=== PATIENT | female | born 1950 | race Caucasian/White ===

== ENCOUNTER 2025-04-23 15:24 | Observation (INO) | payer MEDICARE ==
[2025-04-23 17:08] LABS: APPEARANCE,URINE CLEAR (CLEAR); GLUCOSE,URINE NEGATIVE (NEGATIVE); OCCULT BLOOD,URINE NEGATIVE (NEGATIVE)
[2025-04-23 17:31] LABS: BASOPHILS ABSOLUTE AUTO 0.04 K/uL (0.00-0.10); BASOPHILS PERCENT AUTO 0.7 % (0.1-1.3); EOSINOPHILS ABSOLUTE AUTO 0.08 K/uL (0.00-0.40); EOSINOPHILS PERCENT AUTO 1.4 % (0.0-5.4); IMMATURE GRAN PERCENT AUTO 0.3 % (0.0-0.7); LYMPHOCYTES ABSOLUTE AUTO 2.01 K/uL (0.8-3.3); LYMPHOCYTES PERCENT AUTO 34.1 % (11.4-47.7); MONOCYTES ABSOLUTE AUTO 0.35 K/uL (0.20-0.90); MONOCYTES PERCENT AUTO 5.9 % (3.3-12.6); NEUTROPHILS ABSOLUTE AUTO 3.40 K/uL (1.0-7.6); NEUTROPHILS PERCENT AUTO 57.6 % (40.0-78.1); PLATELET COUNT,PLT 216 K/uL (130-375); RED BLOOD CELL COUNT 3.24 M/uL (3.77-5.24); WHITE BLOOD CELL COUNT,WBC 5.9 K/uL (3.2-11.0)
[2025-04-23 17:33] LABS: IMMATURE GRAN ABSOLUTE AUTO 0.02 K/uL (0.00-0.23)
[2025-04-23 17:52] LABS: A/G RATIO 1.8 (1.2-2.2); ALANINE AMINOTRANSFERASE,ALT 20 U/L (12-78); ASPARTATE AMNIOTRANSFERASE,AST 42 U/L (15-37); BILIRUBIN TOTAL 0.4 mg/dL (0.2-1.0); BLOOD UREA NITROGEN,BUN 28 mg/dL (7-18); CARBON DIOXIDE,CO2 31 mmol/L (21-32); CHLORIDE,CL 96 mmol/L (100-108); CREATININE 0.9 mg/dL (0.6-1.0); EST CRCL DRUG DOSING (CG) 45.36 mL/min; ESTIMATED GFR 67 mL/min (>60); GLUCOSE RANDOM 103 mg/dL (74-106); POTASSIUM,K 3.7 mmol/L (3.6-5.2); PROTEIN TOTAL,TP 7.3 g/dL (6.4-8.2); SODIUM,NA 134 mmol/L (140-148)
[2025-04-23] MEDS ORDERED: Ondansetron 4 MG/2 ML SDV IV PRN (19:14)
[2025-04-23] MEDS ORDERED: Magnesium Hydroxide 400 MG/5 ML Susp 30 ML Cup PO PRN (19:14)
[2025-04-23] MEDS ORDERED: Ondansetron 4 MG Tab.DIS PO PRN (19:14)
[2025-04-23] MEDS ORDERED: Sennosides/Docusate Sodium 50-8.6 MG Tab PO PRN (19:14)
[2025-04-23] MEDS ORDERED: Naloxone 0.4 MG/ML SDV IVPUSH PRN (19:14)
[2025-04-24 05:52] LABS: PLATELET COUNT,PLT 170.0 K/uL (130-375); RED BLOOD CELL COUNT 2.78 M/uL (3.77-5.24); WHITE BLOOD CELL COUNT,WBC 4.2 K/uL (3.2-11.0)
[2025-04-24 06:07] LABS: BLOOD UREA NITROGEN,BUN 22.0 mg/dL (7-18); CARBON DIOXIDE,CO2 32.0 mmol/L (21-32); CHLORIDE,CL 104.0 mmol/L (100-108); CREATININE 0.7 mg/dL (0.6-1.0); EST CRCL DRUG DOSING (CG) 58.33 mL/min; ESTIMATED GFR 91.0 mL/min (>60); GLUCOSE RANDOM 101.0 mg/dL (74-106); POTASSIUM,K 4.0 mmol/L (3.6-5.2); SODIUM,NA 139.0 mmol/L (140-148)
[2025-04-24] MEDS ORDERED: fentaNYL 50 MCG/ML SDV ONE (06:59)
[2025-04-24] MEDS ORDERED: Propofol 200 MG/20 ML SDV ONE (06:59)
[2025-04-24] MEDS ORDERED: Non-Formulary Medication 1 Each (Valsartan [Valsartan] 80 MG Tablet) PO SCH (09:00)
[2025-04-24] MEDS: Calcium Carbonate/Vitamin D3 1500 MG-400 Units Tab PO SCH (11:58)
== END 2025-04-24 13:22 | disposition home or self-care (01) ==
LOC: JP.ED 15:24 → JP.MS 18:48
PROVIDERS: ADMIT Nurse Practitioner; ATTEND Internal Medicine
DX: K29.50 Unspecified chronic gastritis without bleeding (principal); K25.6 Chronic or unspecified gastric ulcer with both hemorrhage and perforation; K92.1 Melena; D62 Acute posthemorrhagic anemia; Z88.0 Allergy status to penicillin; Z79.82 Long term (current) use of aspirin; Z79.899 Other long term (current) drug therapy; Z91.013 Allergy to seafood
CPT/HCPCS: 36415; 43239; 80048; 80053; 81003; 82272; 83605; 85018; 85025; 85027; 86850; 86900; 86901; 88305; 96361; 96374; 99222; 99238; 99285; A9270; G0378; J2470; J2704; J3010; J7030; 99284

== ENCOUNTER 2025-06-21 06:41 | Day surgery (SDC) | payer MEDICARE ==
[2025-06-21] MEDS ORDERED: Propofol 200 MG/20 ML SDV ONE (07:09)
[2025-06-21] MEDS ORDERED: fentaNYL 50 MCG/ML SDV ONE (07:09)
[2025-06-21] MEDS: Lactated Ringers 1,000 ML IV SCH (07:22)
== END 2025-06-21 09:55 | disposition home or self-care (01) ==
LOC: JP.SDS 06:41
PROVIDERS: ATTEND Surgery
DX: K22.89 Other specified disease of esophagus (principal); I10 Essential (primary) hypertension; Z88.0 Allergy status to penicillin; Z79.82 Long term (current) use of aspirin; Z91.013 Allergy to seafood; Z79.899 Other long term (current) drug therapy
CPT/HCPCS: 00731; 43239; J2704; J3010; J7120